=== PATIENT | male | born 1995 | race Caucasian/White ===

== ENCOUNTER 2022-12-09 20:17 | Emergency (ER) | payer OTHER ==
[~2022-12-09] VITALS: Ht 170.2 cm; Wt 75.7 kg
[2022-12-09 21:20] VITALS: BP 145/86
--- NOTE | 2022-12-10 00:05 | NUR ---
Patient taken to bed 9.
[2022-12-10] MEDS ORDERED: NACL 0.9% 1,000 ML IV ONE (00:15)
[2022-12-10] MEDS ORDERED: HALOPERIDOL IM 5 MG/ML VIAL IM ONE (00:15)
[2022-12-10 00:27] LABS: BASOPHILS % (AUTO) 0.2 % (0.0-2.0); HEMATOCRIT 47.2 % (36-52); HEMOGLOBIN 16.3 g/dL (12.0-18.0); LYMPHOCYTES # (AUTO) 0.8 K/uL (2.0-11.5); LYMPHOCYTES % (AUTO) 5.7 % (20.5-51.1); MEAN CORPUSCULAR HEMOGLOBIN 32 pg (27-31); MEAN CORPUSCULAR HGB CONC 35 g/dL (33-37); MEAN CORPUSCULAR VOLUME 91.9 fL (80-94); MONOCYTES # (AUTO) 0.5 K/uL (0.8-1.0); MONOCYTES % (AUTO) 3.4 % (1.7-9.3); NEUTROPHILS # (AUTO) 12.9 K/uL (1.8-7.7); NEUTROPHILS % (AUTO) 90.7 % (42.2-75.2); PLATELET COUNT (AUTO) 313 K/uL (140-450); RED BLOOD CELL COUNT(AUTO) 5.14 MIL/uL (4.20-6.10); RED CELL DISTRIBUTION WIDTH 13.4 % (11.6-13.7); WHITE BLOOD COUNT (AUTO) 14.2 K/uL (4.8-10.8)
--- NOTE | 2022-12-10 00:30 | NUR ---
Dr. Duffy by bedside evaluating patient at this time.
[2022-12-10 00:55] LABS: ALBUMIN 4.9 g/dL (3.4-5.0); ANION GAP 15.4 (8-16); CARBON DIOXIDE 29.4 mmol/L (21-32); CREATININE 1.4 mg/dL (0.6-1.3); POTASSIUM 3.8 mmol/L (3.5-5.1); TOTAL BILIRUBIN 0.7 mg/dL (0.0-1.0)
[2022-12-10] MEDS ORDERED: LORazepam 2 MG/ML VIAL IVP ONE (01:10)
--- NOTE | 2022-12-10 01:14 | NUR ---
Pt c/o restlessness and anxiety. ERMD notified and orders received.
--- NOTE | 2022-12-10 01:17 | NUR ---
PO challenge done as per ERMD instructions, pt tolerated well. Denies any nausea and no episodes of vomiting.
[2022-12-10] MEDS ORDERED: ONDA-188 PO (02:15)
--- NOTE | 2022-12-10 02:30 | NUR ---
Patient discharged with v/s stable. Written and verbal after care instructions given and explained. New rx vesta. Patient verbalized understanding. Ambulatory with steady gait. Accompanied by mother. All questions addressed prior to discharge. Advised to follow up with PMD.
[2022-12-10 02:32] VITALS: BP 123/63
== END 2022-12-10 02:30 | disposition home or self-care (01) ==
LOC: MED 20:17
DX: R11.2 Nausea with vomiting, unspecified (principal); R10.10 Upper abdominal pain, unspecified; Z79.899 Other long term (current) drug therapy
CPT/HCPCS: 36415; 80053; 83690; 85025; 96361; 96372; 96374; 99284; J1630; J2060; J7030